=== PATIENT | female | born 1990 | race Caucasian/White ===

== ENCOUNTER 2018-09-25 11:14 | Emergency (ER) | payer MEDICAID ==
[~2018-09-25] VITALS: Ht 170.2 cm; Wt 150.0 kg
[~2018-09-25 11:14] MED LIST: ONDA4TAB14 PO
[2018-09-25 11:16] VITALS: BP 140/89; PULSE 89; RESP 18; Ht 170.2 cm; Wt 150.0 kg
[2018-09-25] MEDS ORDERED: SOD CHLORIDE 0.9% 1,000 ML IV STA (11:34)
[2018-09-25] MEDS ORDERED: ONDANSETRON 4 MG INJ IV STA (11:34)
--- NOTE | 2018-09-25 15:33 | ERD ---
ER Documentation Chief Complaint Chief Complaint 8 WEEKS WITH VOMITING HPI 28-year-old female presenting with vomiting in . G1, . LNMP July 27. Patient does not have an ultrasound at this point and she is having no vaginal bleeding. Denies other medical problems. Allergic to penicillin. Surgical history ROS All systems reviewed and are negative except as per history of present illness. Medications Home Meds Active Scripts Ondansetron (Ondansetron Odt) 4 Mg Tab.rapdis, 4 MG PO Q6H PRN for NAUSEA AND/OR VOMITING, #10 TAB Prov:TERENCE LIU PA-C 09/25/18 Allergies Allergies: Coded Allergies: Penicillins (Verified Allergy, Intermediate, rashes, 09/25/18) PMhx/Soc Medical and Surgical Hx: pt denies Medical Hx History of Surgery: Yes (cyst left wrist) Hx Alcohol Use: No Hx Substance Use: No Hx Tobacco Use: No Smoking Status: Never smoker FmHx Family History: No diabetes, No coronary disease, No other Physical Exam Vitals Vital Signs Date Temp Pulse Resp B/P (MAP) Pulse Ox O2 O2 Flow FiO2 Time Delivery Rate 09/25/18 98.1 89 18 140/89 99 11:16 (106) Physical Exam GENERAL: The patient is well-appearing, well-nourished, in no acute distress HEENT: Atraumatic. Conjunctivae are pink. Pupils equal, round, and reactive to light. There is no scleral icterus. Tympanic membranes clear bilaterally. Oropharynx clear. NECK: C-spine is soft and supple. There is no meningismus. There is no cervical lymphadenopathy. CHEST: Clear to auscultation bilaterally. There are no rales, wheezes or rhonchi. HEART: Regular rate and rhythm. No murmurs, clicks, rubs or gallops. No S3 or S4. ABDOMEN:Soft, nontender and nondistended. Good bowel sounds. No rebound or guarding. No gross peritonitis. No gross organomegaly or masses. Result Diagram: 09/25/18 1153 09/25/18 1153 Results 24 hrs Laboratory Tests Test 09/25/18 11:53 White Blood Count 11.4 10^3/ul Red Blood Count 4.24 10^6/ul Hemoglobin 11.1 g/dl Hematocrit 35.2 % Mean Corpuscular Volume 83.0 fl Mean Corpuscular Hemoglobin 26.2 pg Mean Corpuscular Hemoglobin Concent 31.5 g/dl Red Cell Distribution Width 14.4 % Platelet Count 218 10^3/UL Mean Platelet Volume 11.4 fl Immature Granulocytes % 0.400 % Neutrophils % 70.3 % Lymphocytes % 21.6 % Monocytes % 7.1 % Eosinophils % 0.3 % Basophils % 0.3 % Nucleated Red Blood Cells % 0.0 /100WBC Immature Granulocytes # 0.050 10^3/ul Neutrophils # 8.0 10^3/ul Lymphocytes # 2.5 10^3/ul Monocytes # 0.8 10^3/ul Eosinophils # 0.0 10^3/ul Basophils # 0.0 10^3/ul Nucleated Red Blood Cells # 0.0 10^3/ul Urine Color HENRI Urine Clarity CLOUDY Urine pH 9.0 Urine Specific [place] 1.020 Urine Ketones NEGATIVE mg/dL Urine Nitrite NEGATIVE mg/dL Urine Bilirubin NEGATIVE mg/dL Urine Urobilinogen NEGATIVE mg/dL Urine Leukocyte Esterase NEGATIVE Sushma/ul Urine Microscopic RBC 0 /HPF Urine Microscopic WBC 5 /HPF Urine Squamous Epithelial Cells FEW /HPF Urine Amorphous Crystals FEW /HPF Urine Bacteria FEW /HPF Urine Mucus MODERATE /HPF Urine Hemoglobin NEGATIVE mg/dL Urine Glucose NEGATIVE mg/dL Urine Total Protein 1+ mg/dl Sodium Level 136 mmol/L Potassium Level 4.2 mmol/L Chloride Level 103 mmol/L Carbon Dioxide Level 27 mmol/L Anion Gap 6 Blood Urea Nitrogen 9 mg/dl Creatinine 0.49 mg/dl Est Glomerular Filtrat Rate mL/min > 60 mL/min Glucose Level 103 mg/dl Calcium Level 8.9 mg/dl Total Bilirubin 0.3 mg/dl Direct Bilirubin 0.00 mg/dl Indirect Bilirubin 0.3 mg/dl Aspartate Amino Transf (AST/SGOT) 18 IU/L Alanine Aminotransferase (ALT/SGPT) 14 IU/L Alkaline Phosphatase 60 IU/L Total Protein 7.8 g/dl Albumin 4.3 g/dl Globulin 3.50 g/dl Albumin/Globulin Ratio 1.22 Lipase 107 U/L Current Medications Medications Dose Sig/Brittany Start Time Status Last (Trade) Ordered Route PRN Stop Time Admin Dose Reason Admin Sodium 1,000 ml @ Q1H STAT 09/25/18 DC 09/25/18 Chloride 1,000 mls/hr IV 11:34 11:50 09/25/18 12:33 Ondansetron 4 mg ONCE STAT 09/25/18 DC 09/25/18 HCl (Zofran IV 11:34 11:51 Inj) 09/25/18 11:36 Procedures/MDM DIAGNOSTIC IMAGING REPORT Patient: MAGALI VASQUEZ : 1990 Age: 28 Sex: F MR #: [id number] DOS: 09/25/18 1134 Ordering MD: BRETT LIU PA-C Location: [facility] Room/Bed: PROCEDURE: US OB. CLINICAL INDICATION: Pelvic pain TECHNIQUE: Transabdominal views of the pelvis are available for review. COMPARISON: No prior studies are available for comparison. FINDINGS: There is a single intrauterine gestation with the crown-rump length measuring 1.8 cm and the gestational sac measures 2.4 cm, corresponding to a gestational age of 7 weeks and 6 days. The heart rate is noted at 168 bpm. The ovaries are normal in size and echogenicity. Normal Doppler flow is identified in both ovaries. The right ovary measures 2.3 x 1.5 x 1.9 cm. The left ovary measures 4.0 x 2.2 x 3.5 cm. There is a small simple cyst in the left ovary. There is no free fluid. RPTAT: AA IMPRESSION: Single live intrauterine with an estimated gestational age of 7 weeks and 6 days, based on ultrasound measurements. MELVIN based on ultrasound measurements is 05/08/19. Small simple cyst in the left ovary measuring approximately 2 cm. MDM: 28-year-old female presenting with vomiting. Patient does not have findings of dehydration. I have low suspicion for acute abdominal emergency. I have low suspicion for complication due to . Patient will be discharged with supportive medications is likely experiencing normal symptoms. Patient is told symptoms change or worsen to return immediately to the ER. All questions answered at discharge Departure Diagnosis: Primary Impression: Additional Impression: Vomiting Condition: Stable Patient Instructions: Vomiting (6Y-Adult) Referrals: COMM[facility] YOU HAVE RECEIVED A MEDICAL SCREENING EXAM AND THE RESULTS INDICATE THAT YOU DO NOT HAVE A CONDITION THAT REQUIRES URGENT TREATMENT IN THE EMERGENCY DEPARTMENT. FURTHER EVALUATION AND TREATMENT OF YOUR CONDITION CAN WAIT UNTIL YOU ARE SEEN IN YOUR DOCTORS OFFICE WITHIN THE NEXT 1-2 DAYS. IT IS YOUR RESPONSIBILITY TO MAKE AN APPOINTMENT FOR FOLOW-UP CARE. IF YOU HAVE A PRIMARY DOCTOR --you should call your primary doctor and schedule an appointment IF YOU DO NOT HAVE A PRIMARY DOCTOR YOU CAN CALL OUR PHYSICIAN REFERRAL HOTLINE AT IF YOU CAN NOT AFFORD TO SEE A PHYSICIAN YOU CAN CHOSE FROM THE FOLLOWING [facility] [address] [employer] [address] [facility] [address] [employer] [facility] [address] [facility] [address] [facility] [address] [facility] [facility] [address] Additional Instructions: FOLLOW UP WITH YOUR PRIMARY CARE PHYSICIAN TOMORROW.Return to this facility if you are not improving as expected. TERENCE LIU PA-C Sep 25, 2018 15:33
== END 2018-09-25 12:59 | disposition home or self-care (01) ==
LOC: FTE 11:14
DX: O21.9 Vomiting of pregnancy, unspecified (principal); Z3A.01 Less than 8 weeks gestation of pregnancy
CPT/HCPCS: 36415; 76801; 76817; 80053; 81001; 83690; 85025; 96374; J2405; J7030; Z7502